=== PATIENT | female | born 1995 | race Caucasian/White ===

== ENCOUNTER 2019-03-27 02:28 | Emergency (ER) | payer SELFPAY ==
[~2019-03-27] VITALS: Ht 160 cm; Wt 79.4 kg
[2019-03-27 02:28] VITALS: BP 119/72
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
--- NOTE | 2019-03-27 02:35 | NUR ---
SEEN AND EXAMINED BY SEB.
[2019-03-27 02:46] VITALS: BP 119/72
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
--- NOTE | 2019-03-27 02:46 | NUR ---
PATIENT BIB [facility] POLICE DEPT. PATIENT EXAMINED BY DR. BENNETT PATIENT MEDICALLY CLEARED AND RELEASED IN CUSTODY IN STABLE CONDITION. ORIGINAL PRE-BOOK FORM GIVEN TO OFFICER GASPER SHEIKH #[id number]
== END 2019-03-27 02:46 ==
LOC: MED 02:28
DX: Z02.89 Encounter for other administrative examinations (principal); V89.2XXA Person injured in unspecified motor-vehicle accident, traffic, initial encounter; Y93.89 Activity, other specified; Y92.89 Other specified places as the place of occurrence of the external cause; Y99.8 Other external cause status
CPT/HCPCS: 99283